=== PATIENT | female | born 1985 | race Caucasian/White ===

== ENCOUNTER 2020-08-30 13:34 | Emergency (ER) | payer MEDICAID, SELFPAY ==
[2020-08-30 14:05] VITALS: BP 137/92; PULSE 67; RESP 19; TEMP 37; O2SAT 97; BMI 33.8
[2020-08-30 14:28] VITALS: BP 137/92; PULSE 67; RESP 19; TEMP 37; O2SAT 97
--- NOTE | 2020-08-30 15:06 | HMH.EDUTC ---
[facility] [place] Clinical Impression: Otitis media Qualifiers: Otitis media type: unspecified Laterality: right Qualified Code(s): H66.91 - Otitis media, unspecified, right ear Disposition: Home, Self-Care Condition on Discharge: Good Instructions: DI for Ear Pain-Adult, Amoxicillin Additional Instructions: *Monitor Temp, Over the counter Motrin or Tylenol as directed/as needed Tylenol every 4 hours and Motrin every 6 hours (as long as your family doctor has told you that you can take it) for fever or pain. and straight to ER if unable to lower temp less than 101.0 after medication given *Sleep elevated *Humidifier/Vaporizer Take medication as prescribed Follow up IMMEDIATELY for new or worsening symptoms or no Noticeable improvement over the next 48-72 hours. 911 for difficulty breathing or swallowing Prescriptions: Amoxicillin [Amoxicillin 875MG Tab] 875 mg PO Q12H #20 tab Transmission Status: Pending to [facility] Referrals: Provider,Referral, MD [Primary Care Provider] - As needed Time of Disposition: 15:22 Medical Decision Making - Kenny Inquiry Pt receiving controlled substance: No Kenny was queried for this patient: No Vital Signs: 08/30/20 14:05 08/30/20 14:28 Temperature 98.6 F 98.6 F Temperature Source Oral Pulse Rate 67 Pulse Rate [Right Brachial] 67 Respiratory Rate 19 19 Blood Pressure 137/92 H Blood Pressure [Right Arm] 137/92 H Blood Pressure Mean [Right Arm] 107 Blood Pressure Source [Right Arm] Automatic Cuff Blood Pressure Position [Right Arm] Sitting 02 Sat by Pulse Oximetry 97 Oxygen Delivery Method Room Air [facility] [place] - General Stated complaint: right ear pain Time Seen by Provider: 08/30/20 15:06 Mode of Arrival: Ambulatory Source of Information: Patient Limitations: No Limitations Description of Symptoms (Recalled from Triage Doc. by RN): PATIENT C/O RIGHT EAR PAIN SINCE MONDAY HEENT Symptoms (Recalled from RN notes): Yes Resp Symptoms (Recalled from RN notes): No Skin Symptoms (Recalled from RN notes): No MS Symptoms (Recalled from RN notes): No Functional Status (Recalled from RN notes): wnl - History of Present Illness Provider Complaint: Patient states that she has been having pain in her right ear since Monday and has continued to get worse State that she thinks she may have an ear infection - Related Data Previous Rx's Medication Instructions Recorded Amoxicillin [Amoxicillin 875MG 875 mg PO Q12H #20 tab 08/30/20 Tab] Allergies Allergy/AdvReac Type Severity Reaction Status Date / Time No Known Allergies Allergy Verified 09/20/17 16:02 - Worker's Comp Is this a Worker's Comp case?: No H History - Hepatitis A Screen Drug use history?: No High risk sexual behaviors?: No History of sexually transmitted infection?: No Currently employed?: No Childcare worker?: No Do you have indoor plumbing?: Yes Do you have electricity?: Yes Attestation statement:: This patient has been screened for Hepatitis A risk factors. I have reviewed the patient's past medical history: Yes Medical History: Denies:: Diabetes Mellitus Type 1, Diabetes Mellitus Type 2 Laterality Cases: Bilateral: Myringotomy (Ear Tubes) - Social History Smoking Status: Never smoker Alcohol Intake: never Occupational Status: other ROS Obtained: Yes All systems reviewed & no additional complaints, Yes Systems reviewed as appropriate & no additional complaints - Constitutional Constitutional: Reports system reviewed and no additional complaints, except as docu - Eyes Eyes: Reports system reviewed and no additional complaints, except as docu - ENT Ears, Nose, Mouth, and Throat: Reports system reviewed and no additional complaints, except as docu, Reports otalgia Physical Exam - General General appearance: alert, in no apparent distress - Expanded ENT Exam TM/Canal exam: Right TM: erythema, bulging - Respiratory Respiratory exam: Prese
== END 2020-08-30 15:33 | disposition home or self-care (01) ==
PROVIDERS: Emergency Provider Nurse Practitioner
DX: H66.91 Otitis media, unspecified, right ear (principal)
CPT/HCPCS: 99202; G0463

== ENCOUNTER 2021-12-21 08:27 | Day surgery (SDC) | payer MEDICAID, SELFPAY ==
--- NOTE | 2021-12-20 13:53 | SUR.PREOP ---
Spoke with pt via telephone to preop. Pt says has to get kids on the bus and cannot be here at scheduled time-0600 for 0730 procedure,could be here around 0900. Notified Macario in specialty clinic and Tammy Shaw manager relocation. is willing to move procedure until 9. Call back to pt. Pt says cannot be here in time for a 0900 procedure either because of various issues with her children. Asked pt if she still wanted to come in for 0900 procedure time and pt hung up. Notified Macario and Tammy Shaw RN. Macario to try to contact pt again.
[2021-12-21] VITALS (10 sets, daily range): BP systolic 105–150; BP diastolic 67–95; PULSE 75–97; RESP 16–20; TEMP 36.2–36.6; O2SAT 92–100; BMI 39.4
[2021-12-21 08:50] LABS: MANUAL DIFFERENTIAL MANUAL DIFFERENTIAL (MANUAL DIFF)
[2021-12-21 08:52] LABS: Coronavirus 19, PCR Not Detected (NotDetected); Influenza A, PCR Not Detected (NotDetected); Influenza B, PCR Not Detected (NotDetected)
[2021-12-21 09:11] LABS: Basophils # 0.1 K/mm3 (0-0.2); Basophils % 1.6 % (0.1-2.0); Eosinophils # 0.1 K/mm3 (0.0-0.4); Eosinophils % 2.5 % (0.1-12.0); Hematocrit 36.6 % (37.0-47.0); Hemoglobin 11.9 g/dL (12.2-16.2); Lymphocytes # 1.1 K/mm3 (0.7-4.5); Lymphocytes % 20.2 % (10-50); Mean Corpuscular HGB Conc 32.5 g/dL (31.8-35.4); Mean Corpuscular Hemoglobin 31.4 pg (27.0-31.2); Mean Corpuscular Volume 96.6 fl (81-99); Mean Platelet Volume 8.3 fl (7.4-10.4); Monocytes # 0.2 K/mm3 (0.1-1.0); Monocytes % 4.1 % (1.7-9.3); Neutrophils % 71.6 % (37.0-80.0); Platelet Count 276 K/mm3 (142-424); Red Blood Count 3.79 M/mm3 (4.20-5.40); Red Cell Distribution Width 14.2 % (11.5-17.5); White Blood Count 5.6 K/mm3 (4.8-10.8)
[2021-12-21 09:17] LABS: Chloride 104 mmol/L (98-107); Potassium 4.2 mmoL/L (3.5-5.1); Sodium 136 mmol/L (136-145)
[2021-12-21 09:41] LABS: HCG,Quantitative < 2 mIU/ml (0-5.42)
[2021-12-21 09:43] LABS: Anion Gap 11.2 mEq/L (5-15); Blood Urea Nitrogen 7 mg/dl (7-17); Calcium 8.6 mg/dl (8.4-10.2); Carbon Dioxide 25 mmol/L (22.0-30.0); Creatinine Clearance Estimated 229 mL/min (50-200); Estimated Glomerular Filt Rate 141 ml/min (>60); GFR (African American) 171 ML/MIN (>60); Glucose 89 mg/dl (74-100)
[2021-12-21 10:17] LABS: Eosinophils % 5 % (0-3); Lymphocytes % 26 % (10-50); Monocytes % 4 % (2-9); Neutrophils % 65 % (42-76); Platelet Estimate Normal; RBC Morphology Normal; Total Cells Counted 100
--- NOTE | 2021-12-21 10:23 | EXP.ANES.CKL ---
[facility] Medical History (Updated 12/21/21 @ 09:16 by Heidy Varner, RN) Arthritis History of gastroesophageal reflux (GERD) Migraine Perforation of right tympanic membrane Urinary tract infection Surgical History (Updated 12/21/21 @ 09:17 by Heidy Varner, RN) H/O tubal ligation H/O: Family History (Updated 12/21/21 @ 09:19 by Heidy Varner, RN) Grandmother Family history of Alzheimer's disease Family history of diabetes mellitus type II Father Colon cancer Social History (Updated 12/21/21 @ 09:20 by Heidy Varner, RN) Smoking Status: Never smoker alcohol intake: never substance use type: denies use current occupational status: unemployed Travel in the last 8 weeks: None [facility] Anesthesia Checklist Patient Identification Patient Identification: Arm Band Structural Data Admitted From: Home Planned Operative Procedure/s: Right Tympanoplasty with Cartilage Graft Consent for Planned Operative Procedure(s) Verified: Yes Verified Documents: Surgical Consent and History and Physical NPO Status Verified Time NPO: 00:00 Additional verifications Anesthesia Reactions: No Hx Blood Transfusions: No Blood Transfusion Reaction: No Airway Assessment C-Spine Mobility Assessed: Yes TMJ Mobility Assessed: Yes Dentition: Good Dentition Neurological Assessment Level of Consciousness: Awake and Alert Anesthesia Plan Anesthesia Risk discussed: Yes Anesthesia Plan: Verified ASA Class: II Anesthesia Type: General
--- NOTE | 2021-12-21 11:04 | P.OP_ITS ---
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 The margins of the perforation were de-epithelialized with a straight pick and cup forceps and then a canal incision was made posteriorly 3 mm from the tympanic annulus and then a tympanomeatal flap was elevated deep to the annulus. Chorda tympani was not identified. 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 Ossicular reconstruction was not possible. Attention was then drawn to the canal surface of the tragus where an incision was made and carried down to the underlying tragal cartilage and perichondrium. A composite cartilage and perichondrium graft was harvested and then the incision closed with 5-0 fast-absorbing chromic. The cartilage and perichondrial graft was then cut to appropriate size. The middle ear was then packed with Gelfoam and then the cartilage graft slid medial to the tympanomeatal flap and then the flap returned to anatomic position. The graft was then adjusted to cover all margins of the perforation and then the tympanomeatal flap and graft were held in position by packing the external canal with Gelfoam impregnated with Ciprodex drops. A sterile dressing was placed and the procedure concluded. All counts correct. Blood loss minimal and patient was sent to recovery in stable condition. Condition: stable Disposition: PACU Complications:: None
--- NOTE | 2021-12-21 11:07 | P.PNANES_ITS ---
[facility] Anesthesia Record Part I Anesthesia Record I Intake, IV Amount: 1,000 Estimated blood loss (mL): 0 Urine output (mL): 0 Blood Products used (#): none Blood Pressure: 113/76 SaO2: 92 Pulse Rate: 97 Respiratory Rate: 16 Temperature: 97.4 F Patient is:: Drowsy and Stable Stable to PACU at:: 11:05
--- NOTE | 2021-12-21 11:36 | PC.NURSE ---
1132-detailed report called to MÓNICA Yoder 1135-pt transported to post op via stretcher w/kathleen rails up and left in care of MÓNICA Yoder with bed locked in lowest position, vss, pt stable
--- NOTE | 2021-12-21 14:37 | EXP.ANES.II ---
[facility] Anesthesia Record Part II Anesthesia Record Part II Discharge Time: 11:35 Destination: Surgical Day Care (OP Surgery) PACU nurse assessment reviewed?: Yes Patient Condition:: Good Anesthesia Complications:: None Swallowing reflex intact?: Yes Cyanosis?: No Blood Pressure: 105/68 Pulse Rate: 87 Temperature: 97.4 F Mental Status: Alert & Oriented Pain level:: 0 Nausea and/or vomitting:: None Intake, IV Amount: 0
== END 2021-12-21 12:06 | disposition home or self-care (01) ==
PROVIDERS: PCP Emergency Medicine; Visit Provider Otolaryngology
PROC: (CPT 69631; principal; 2021-12-21 09:00)
DX: H72.91 Unspecified perforation of tympanic membrane, right ear (principal); H66.91 Otitis media, unspecified, right ear
CPT/HCPCS: 69631; 21235; 36415; 80048; 84702; 85007; 85014; 85018; 85048; 85049; 96374; C9803; J2405; U0003; U0005

== ENCOUNTER → 2022-06-22 10:41 | Outpatient (POV) | payer MEDICAID, SELFPAY | PROVIDERS: Visit Provider Specialist/Technologist | DX: Z00.00 Encounter for general adult medical examination without abnormal findings (principal) ==

== ENCOUNTER → 2022-08-10 15:30 | Outpatient (POV) | payer MEDICAID, SELFPAY | PROVIDERS: Visit Provider Specialist/Technologist | DX: Z00.00 Encounter for general adult medical examination without abnormal findings (principal) ==

== ENCOUNTER → 2022-08-26 09:36 | Outpatient (POV) | payer MEDICAID, SELFPAY | PROVIDERS: Visit Provider Specialist/Technologist | DX: Z00.00 Encounter for general adult medical examination without abnormal findings (principal) ==

== ENCOUNTER → 2023-01-31 12:37 | Outpatient (CLI) | payer MEDICAID, SELFPAY ==
--- NOTE | 2023-01-31 12:42 | XR_ITS ---
FINAL REPORT CLINICAL HISTORY: left fore arm fx FINDINGS: 2 views of the left forearm were obtained. There is a mildly displaced fracture of the radial head with intra-articular extension. The joint spaces are intact. There is an elbow joint effusion. IMPRESSION: Mildly displaced radial head fracture. Reviewed, Interpreted and Dictated by Rogers Calderon MD Transcribed by Sumit Elliott Authenticated and [facility]
== END ==
PROVIDERS: PCP Internal Medicine Adolescent Medicine; Visit Provider Orthopaedic Surgery
DX: S52.92XA Unspecified fracture of left forearm, initial encounter for closed fracture (principal)
CPT/HCPCS: 73090

== ENCOUNTER → 2023-02-21 12:45 | Outpatient (CLI) | payer MEDICAID, SELFPAY ==
--- NOTE | 2023-02-21 12:51 | XR_ITS ---
FINAL REPORT CLINICAL HISTORY: left fore arm fc COMPARISON: 01/31/2023 FINDINGS: Left forearm Two views were obtained. There is a nondisplaced fracture of the radial head, stable. Joint effusion or hemarthrosis persists. IMPRESSION: Stable radial head fracture. Reviewed, Interpreted and Dictated by Frandy Hernandez III, MD Transcribed by Marry Alcantar Authenticated and [facility]
== END ==
PROVIDERS: PCP Internal Medicine Adolescent Medicine; Visit Provider Orthopaedic Surgery
DX: S52.122A Displaced fracture of head of left radius, initial encounter for closed fracture (principal)
CPT/HCPCS: 73090

== ENCOUNTER 2023-03-17 11:01 | Emergency (ER) | payer MEDICAID, SELFPAY ==
[2023-03-17 11:20] VITALS: BP 126/83; PULSE 88; RESP 22; TEMP 36.8; O2SAT 97; BMI 40.2
--- NOTE | 2023-03-17 11:33 | ED_ITS ---
Discharge Plan Disposition Patient Disposition: Home, Self-Care Condition: Good Prescriptions Prescriptions: New benzonatate [benzonatate] 100 mg capsule 100 mg PO TIDP PRN (Reason: Cough) Qty: 30 0RF ondansetron 4 mg Tablet,Disintegrating 4 mg PO Q8H PRN (Reason: Nausea) Qty: 12 0RF No Action escitalopram oxalate 20 mg tablet 20 mg PO DAILY venlafaxine 75 mg capsule,extended release 24hr 75 mg PO DAILY Patient Comments: TAKE 1 CAPSULE BY MOUTH ONCE DAILY Elinest 0.3-30 mg-mcg tablet 1 tab PO DAILY Patient Comments: TAKE 1 TABLET BY MOUTH ONCE DAILY. TAKE CONTINUOUS PILLS SO NOT TO HAVE PERIODS omeprazole 40 mg capsule,delayed release(DR/EC) 40 mg PO DAILY Patient Comments: TAKE 1 CAPSULE BY MOUTH ONCE DAILY ergocalciferol (vitamin D2) 1,250 mcg (50,000 unit) capsule 1,250 mcg PO DAILY Patient Comments: TAKE 1 CAPSULE BY MOUTH ONCE A WEEK, THEN TAKE OVER THE COUNTER DOSE OF 2000- 5000 EVERY DAY Referrals Follow up/Referrals: Tony Holcomb MD [Primary Care Provider] - See instructions Activity Restrictions/Add. Instructions Additional Instructions/Restrictions: Drink plenty of fluids. Take tylenol or ibuprofen for pain or fever. Take the medications as directed. Follow up with your regular doctor. GO TO THE ER FOR ANY WORSENING SYMPTOMS Clinical Impressions Clinical Impression: COVID-19 Stand Alone Forms Stand Alone Forms: Work/School Release Instructions Patient Instructions: Coronavirus Disease 2019, Preventing the Spread of Coronavirus Discharge Instructions Discharge ED Provider: Viraj Mayfield [facility] General Stated complaint: covid positive, cough, body aches and sore throat Time Seen by Provider: 03/17/23 11:33 History of Present Illness Provider Complaint: She states that since yesterday she has had body aches, chills, n/v/d, and a dry cough. She took a home covid-19 test that was positive. She denies shortness of breath and significant chest congestion. Related Data Home Medications Medication Instructions Recorded Confirmed escitalopram oxalate 20 mg tablet 20 mg PO DAILY 06/29/22 03/17/23 ergocalciferol (vitamin D2) 1,250 1,250 mcg PO DAILY 03/17/23 03/17/23 mcg (50,000 unit) capsule norgestrel 0.3 mg-ethinyl 1 tab PO DAILY 03/17/23 03/17/23 estradiol 30 mcg tablet (Elinest) omeprazole 40 mg capsule,delayed 40 mg PO DAILY 03/17/23 03/17/23 release venlafaxine 75 mg capsule,extended 75 mg PO DAILY 03/17/23 03/17/23 release 24 hr Previous Rx's Medication Instructions Recorded benzonatate 100 mg capsule 100 mg PO TIDP PRN Cough #30 caps 03/17/23 ondansetron 4 mg disintegrating 4 mg PO Q8H PRN Nausea #12 tabs 03/17/23 tablet Allergies Allergy/AdvReac Type Severity Reaction Status Date / Time No Known Allergies Allergy Verified 02/21/23 13:27 [facility] Disclaimer: The information contained in this section may have been updated after the patient was seen, as this information can be updated by other users. Medical History Arthritis Hearing loss Hearing loss in right ear History of gastroesophageal reflux (GERD) Migraine Perforation of right tympanic membrane perforation is healed Urinary tract infection Surgical History H/O tubal ligation H/O: History of tympanoplasty of right ear Status post tympanoplasty Family History Grandmother Family history of Alzheimer's disease Family history of diabetes mellitus type II Father Colon cancer Social History Smoking Status: Never smoker alcohol intake: never substance use type: denies use current occupational status: unemployed Travel in the last 8 weeks: None ROS Obtained: Yes All systems reviewed & no additional complaints except as documented Constitutional Constitutional: Reports chills and Reports fever(s) Eyes Eyes: Denies eye discharge ENT Ears, Nose, Mouth, and Throat: Reports as per HPI Cardiovascular Cardiovascular: Denies chest pain Respiratory Respiratory: Denies chest congestion and Reports cough Gastrointestinal Gastrointestingal: Reports nausea; Denies abdominal pain, constipation, cramping, diarrhea or vomiting Musculoskeletal Musculoskeletal: Denies arthralgias Integumentary/Breasts Skin/Breast: Denies rash Neurologic Neurologic: Denies paresthesias Physical Exam General General appearance: alert and in no apparent distress Head Head exam: atraumatic, normocephalic and normal inspection Eye Eye exam: Present normal appearance, PERRL and EOMI ENT ENT exam: Present normal exam, normal oropharynx, mucous membranes moist, TM's normal bilaterally and normal external ear exam Neck Neck exam: Present normal inspection, full ROM and trachea midline; Absent meningismus or lymphadenopathy Chest Chest inspection: Present normal inspection and symmetric chest wall rise; Absent tenderness Respiratory Respiratory exam: Present normal lung sounds bilaterally; Absent respiratory distress Cardiovascular Cardiovascular exam: Present regular rate and normal rhythm; Absent JVD Abdominal Exam Abdominal exam: Present soft and normal bowel sounds; Absent distention, tenderness or guarding Extremities Exam Extremities exam: Present normal inspection, full ROM and normal capillary refill; Absent calf tenderness Back Exam Back exam: Present normal inspection; Absent tenderness Neurological Exam Neurological exam: Present alert and oriented X3 Psychiatric Psychiatric exam: Present normal affect and normal mood Skin Skin exam: Present warm, dry, intact and normal color Lymphatic Lymphatic Findings: no adenopathy Medical Decision Making Medical Records Medical records reviewed: No I reviewed the patient's medical records. Kenny Inquiry Pt receiving controlled substance: No Lab Data Lab results reviewed: No I reviewed the patient's lab results. Orders (Tests/Meds): ORDERS Category Date Time Status Covid-19 Nasal PCR ([facility]) Routine Lab 03/17/23 11:00 Received
[2023-03-17 11:50] VITALS: BP 126/83; PULSE 88; RESP 22; TEMP 36.8; O2SAT 97
== END 2023-03-17 12:20 | disposition home or self-care (01) ==
PROVIDERS: Emergency Provider Nurse Practitioner Family; PCP Internal Medicine Adolescent Medicine
DX: U07.1 COVID-19 (principal); R05.9 Cough, unspecified; R07.0 Pain in throat; M79.18 Myalgia, other site; R11.0 Nausea
CPT/HCPCS: 87635; 99212; 99214; G0463

== ENCOUNTER 2023-07-31 15:04 | Emergency (ER) | payer MEDICAID, SELFPAY ==
[2023-07-31 15:30] VITALS: BP 135/88; PULSE 95; RESP 18; TEMP 36.7; O2SAT 96; BMI 39.0
--- NOTE | 2023-07-31 15:35 | EXP.UTC ---
Discharge Plan Disposition Patient Disposition: Home, Self-Care Condition: Good Prescriptions Prescriptions: New amoxicillin 875 mg tablet 875 mg PO Q12H Qty: 20 0RF [id number]-[id number] [Bromfed DM] 2-30-10 mg/5 mL Syrup 5 ml PO Q6H PRN (Reason: Cough) Qty: 240 0RF ondansetron 4 mg Tablet,Disintegrating 4 mg PO Q8H PRN (Reason: Nausea) Qty: 8 0RF No Action bupropion HCl 150 mg tablet sustained-release 12 hr 150 mg PO DAILY escitalopram oxalate 20 mg tablet 20 mg PO DAILY omeprazole 40 mg capsule,delayed release(DR/EC) 40 mg PO DAILY Patient Comments: TAKE 1 CAPSULE BY MOUTH ONCE DAILY ergocalciferol (vitamin D2) 1,250 mcg (50,000 unit) capsule 1,250 mcg PO DAILY Patient Comments: TAKE 1 CAPSULE BY MOUTH ONCE A WEEK, THEN TAKE OVER THE COUNTER DOSE OF [id number] EVERY DAY Referrals Follow up/Referrals: Tony Holcomb MD [Primary Care Provider] - See instructions Activity Restrictions/Add. Instructions Additional Instructions/Restrictions: Drink plenty of fluids. Take tylenol or ibuprofen for pain or fever. Take the medications as directed. Follow up with your regular doctor. GO TO THE ER FOR ANY WORSENING SYMPTOMS Clinical Impressions Clinical Impression: Pharyngitis Instructions Patient Instructions: Sore Throat, DI for Pharyngitis/Tonsillopharyngitis -- Adult, Ondansetron, Amoxicillin Discharge ED Provider: Viraj Mayfield [facility] General Stated complaint: congestion, sore throat, cough Time Seen by Provider: 07/31/23 15:35 History of Present Illness Provider Complaint: She states that for the past 3 days she has had worsening productive cough, sore throat, and sinus congestion. Related Data Home Medications Medication Instructions Recorded Confirmed escitalopram oxalate 20 mg tablet 20 mg PO DAILY 06/29/22 07/31/23 ergocalciferol (vitamin D2) 1,250 1,250 mcg PO DAILY 03/17/23 07/31/23 mcg (50,000 unit) capsule omeprazole 40 mg capsule,delayed 40 mg PO DAILY 03/17/23 07/31/23 release bupropion HCl 150 mg tablet,12 hr 150 mg PO DAILY 06/19/23 07/31/23 sustained-release Previous Rx's Medication Instructions Recorded amoxicillin 875 mg tablet 875 mg PO Q12H #20 tabs 07/31/23 cewnnetabeffsev-pfnrstealhdhvll-PU 5 ml PO Q6H PRN Cough #240 mL 07/31/23 2 mg-30 mg-10 mg/5 mL oral syrup (Bromfed DM) ondansetron 4 mg disintegrating 4 mg PO Q8H PRN Nausea #8 tabs 07/31/23 tablet Allergies Allergy/AdvReac Type Severity Reaction Status Date / Time No Known Allergies Allergy Verified 07/31/23 15:44 [facility] Disclaimer: The information contained in this section may have been updated after the patient was seen, as this information can be updated by other users. Medical History Hearing loss in right ear Hearing loss Urinary tract infection Migraine Arthritis History of gastroesophageal reflux (GERD) Perforation of right tympanic membrane perforation is healed Surgical History Status post tympanoplasty History of tympanoplasty of right ear H/O tubal ligation H/O: Family History Grandmother Family history of Alzheimer's disease Family history of diabetes mellitus type II Father Colon cancer Social History Smoking Status: Never smoker alcohol intake: never substance use type: denies use current occupational status: unemployed Travel in the last 8 weeks: None ROS Obtained: Yes All systems reviewed & no additional complaints except as documented Constitutional Constitutional: Reports chills and Reports fever(s) Eyes Eyes: Denies eye discharge ENT Ears, Nose, Mouth, and Throat: Reports as per HPI Cardiovascular Cardiovascular: Denies chest pain Respiratory Respiratory: Denies chest congestion and Reports cough Gastrointestinal Gastrointestingal: Reports nausea; Denies abdominal pain, constipation, cramping, diarrhea or vomiting Musculoskeletal Musculoskeletal: Denies arthralgias Integumentary/Breasts Skin/Breast: Denies rash Neurologic Neurologic: Denies paresthesias Physical Exam General General appearance: alert and in no apparent distress Head Head exam: atraumatic, normocephalic and normal inspection Eye Eye exam: Present normal appearance, PERRL and EOMI ENT ENT exam: Present mucous membranes moist and normal external ear exam Expanded ENT Exam TM/Canal exam: Bilateral TM: erythema and bulging Nose exam: Absent sinus tenderness Mouth exam: Present normal external inspection; Absent drooling Teeth exam: Present normal inspection Throat exam: Present tonsillar erythema, tonsillomegaly and tonsillar exudate Neck Neck exam: Present normal inspection, full ROM and trachea midline; Absent tenderness, meningismus or lymphadenopathy Chest Chest inspection: Present normal inspection and symmetric chest wall rise; Absent tenderness Respiratory Respiratory exam: Present normal lung sounds bilaterally; Absent respiratory distress, wheezes, stridor or accessory muscle use Cardiovascular Cardiovascular exam: Present regular rate and normal rhythm; Absent systolic murmur or diastolic murmur Abdominal Exam Abdominal exam: Present soft and normal bowel sounds; Absent distention, tenderness, guarding, rebound or rigidity Extremities Exam Extremities exam: Present normal inspection and normal capillary refill; Absent calf tenderness Back Exam Back exam: Present normal inspection and full ROM; Absent tenderness, CVA tenderness (R) or CVA tenderness (L) Neurological Exam Neurological exam: Present alert, oriented X3 and CN II-XII intact Psychiatric Psychiatric exam: Present normal affect and normal mood Skin Skin exam: Present warm, dry, intact and normal color Medical Decision Making Medical Records Medical records reviewed: No I reviewed the patient's medical records. Kenny Inquiry Pt receiving controlled substance: No Lab Data Lab results reviewed: Yes I reviewed the patient's lab results.
[2023-07-31 15:36] LABS: UTC Strep Screen (Rapid) Negative (Negative)
[2023-07-31 16:02] VITALS: BP 135/88; PULSE 95; RESP 18; TEMP 36.7; O2SAT 96
== END 2023-07-31 16:02 | disposition home or self-care (01) ==
PROVIDERS: Emergency Provider Nurse Practitioner Family; PCP Internal Medicine Adolescent Medicine
DX: J02.9 Acute pharyngitis, unspecified (principal); R05.9 Cough, unspecified; R09.81 Nasal congestion
CPT/HCPCS: 87880; 99212; 99214; G0463